=== PATIENT | male | born 1980 | race Caucasian/White ===

== ENCOUNTER 2025-01-17 16:35 | Inpatient (IN) | payer OTHER ==
[2025-01-17 17:06] VITALS: BMI 26.2
[2025-01-17] MEDS ORDERED: hydrOXYzine PAMOATE 25 MG CAPSULE (FP) PO PRN (17:12)
[2025-01-17] MEDS ORDERED: ONDANSETRON *ODT* 4 MG TABLET SL PRN (17:12)
[2025-01-17] MEDS ORDERED: guaiFENesin 600 MG TABLET.ER (FP) PO PRN (17:12)
[2025-01-17] MEDS ORDERED: NALOXONE (NARCAN) HCL 4 MG/0.1 ML SPRAY NS PRN (17:12)
[2025-01-17] MEDS ORDERED: IBUPROFEN 400 MG TABLET (FP) PO PRN (17:12)
[2025-01-17] MEDS ORDERED: DICYCLOMINE HCL 10 MG CAPSULE PO PRN (17:12)
[2025-01-17] MEDS ORDERED: IBUPROFEN 600 MG TABLET (FP) PO PRN (17:12)
[2025-01-17] MEDS ORDERED: MAG HYDROX/AL HYDROX/SIMETH 30 ML UNIT-DOSE CUP PO PRN (17:12)
[2025-01-17] MEDS ORDERED: BENZOCAINE/MENTHOL (CHLORASEPTIC ) LOZENGE MM PRN (17:12)
[2025-01-17] MEDS ORDERED: ACETAMINOPHEN 325 MG TABLET (FP) PO PRN (17:12)
[2025-01-17] MEDS ORDERED: BISMUTH SUBSALICYLATE 524 MG/30 ML PO PRN (17:12)
[2025-01-17] MEDS ORDERED: chlordiazePOXIDE HCL 25 MG CAPSULE PO PRN (17:12)
[2025-01-17] MEDS ORDERED: POLYETHYLENE GLYCOL (HEALTHYLAX) 3350 17 GM PACKET PO PRN (17:12)
[2025-01-17] MEDS ORDERED: NICOTINE POLACRILEX 2 MG LOZENGE BC PRN (17:12)
[2025-01-17] MEDS ORDERED: LOPERAMIDE HCL 2 MG CAPSULE PO PRN (17:12)
[2025-01-17] MEDS ORDERED: MAGNESIUM HYDROX 2400MG/30ML ORAL SUSPENSION 30 ML CUP PO PRN (17:12)
[2025-01-17] MEDS ORDERED: METHOCARBAMOL 500 MG TABLET PO PRN (17:12)
[2025-01-17] MEDS ORDERED: BENZONATATE 200 MG CAPSULE PO PRN (17:12)
[2025-01-17] MEDS ORDERED: levETIRAcetam 500 MG TABLET (FP) PO ONE (20:05)
[2025-01-17] MEDS ORDERED: chlordiazePOXIDE HCL 25 MG CAPSULE ONE (20:05)
[2025-01-17] MEDS ORDERED: METOPROLOL TARTRATE 25 MG TABLET (FP) ONE (20:06)
[2025-01-17] MEDS: levETIRAcetam 500 MG TABLET (FP) PO SCH (20:10)
[2025-01-17] MEDS: METOPROLOL TARTRATE 50 MG TABLET (FP) PO ONE (20:10)
[2025-01-17] MEDS: chlordiazePOXIDE HCL 25 MG CAPSULE PO SCH (20:10)
[2025-01-17] MEDS: THIAMINE 100 MG TABLET PO SCH (22:13)
[2025-01-17] MEDS: MELATONIN 5 MG TABLETS PO SCH (22:13)
[2025-01-18] MEDS: PRENATAL VITAMINS W/ FOLIC ACID TABLET (FP) PO SCH (10:10)
[2025-01-18] MEDS: NICOTINE POLACRILEX 2 MG GUM BUC PRN (10:15)
[2025-01-18 11:16] LABS: HEMATOCRIT 45.8 % (35.4-49); HEMOGLOBIN 15.6 GM/dL (11.7-16.9); MCH 33.4 pg (25.7-33.7); MEAN CELL VOLUME 98.3 fl (80-96); MEAN PLT VOLUME 8.8 fl (7.5-11.1); PLATELET COUNT 143 10^3/uL (134-434); RBC 4.66 M/mm3 (4.00-5.60); RDW 15.4 % (11.9-15.9); WHITE BLOOD COUNT 7.6 K/mm3 (4.0-10.0)
[2025-01-18 13:06] LABS: CHLORIDE 104 mmol/L (98-107); POTASSIUM 3.2 mmol/L (3.5-5.1); SODIUM 139 mmol/L (136-145)
[2025-01-18 13:09] LABS: ALBUMIN 3.7 g/dl (3.4-5.0); ANION GAP 7 mmol/L (4-13); BLOOD UREA NITROGEN 13.2 mg/dL (7-18); CO2 28 mmol/L (21-32); GLUCOSE,RANDOM 100 mg/dL (74-106)
[2025-01-18 13:12] LABS: CREATININE 0.8 mg/dL (0.55-1.3); SGOT/AST 36 U/L (15-37); SGPT/ALT 33 U/L (13-61)
[2025-01-18 13:13] LABS: BILIRUBIN,TOTAL 0.8 mg/dL (0.2-1); TOT PROT 6.9 g/dl (6.4-8.2)
[2025-01-18 13:15] LABS: ALK PHOS 80 U/L (45-117)
[2025-01-18] MEDS: POTASSIUM CHLORIDE ORAL LIQUID 20 MEQ/15 ML PO ONE (19:34)
[2025-01-19] MEDS: chlordiazePOXIDE HCL 25 MG CAPSULE PO SCH (05:45)
[2025-01-20] MEDS ORDERED: chlordiazePOXIDE HCL 10 MG CAPSULE PO PRN
[2025-01-20] MEDS: chlordiazePOXIDE HCL 10 MG CAPSULE PO SCH (05:32)
[2025-01-21] MEDS: chlordiazePOXIDE HCL 10 MG CAPSULE PO SCH (05:35)
[2025-01-22] MEDS: chlordiazePOXIDE HCL 10 MG CAPSULE PO ONE (05:51)
[2025-01-22 09:04] VITALS: BP 129/88; PULSE 78; RESP 18; TEMP 97.8
== END 2025-01-22 09:20 | disposition home or self-care (01) | DRG 775 ==
LOC: YASAS 16:35 → Y3N 20:31
PROVIDERS: ADMIT Allergy & Immunology; ATTEND Allergy & Immunology
PROC: HZ2ZZZZ Detoxification Services for Substance Abuse Treatment (ICD-10-PCS; principal; 2025-01-17)
DX: F10.230 Alcohol dependence with withdrawal, uncomplicated (principal); F17.210 Nicotine dependence, cigarettes, uncomplicated; E87.6 Hypokalemia
CPT/HCPCS: 36415; 71045-TC-FY; 80053; 80305; 80307; 84132; 85027; 86780; 93005; 93010